=== PATIENT | female | born 1955 | race Caucasian/White ===

== ENCOUNTER 2017-03-11 15:01 | Emergency (ER) | payer MEDICARE ==
[~2017-03-11 15:01] MED LIST: ADVIL PO; AMOXIL500 MG PO; BIAXIN5 PO; CHEMO THERAPY IV; CHEMOTHERAPY IV; COMP10B PO; FEMARA PO; FLUCON1 PO; IBRANCE125 PO; METHOC500B PO; MSCONT15 PO; NOLV10 PO; NORCO1 TAB PO; PRILO PO; PROVHFA INH; SEROQUEL300 MG PO; SUPER B-100 PO; TAMOXIFEN20 M1 PO; TESSALON200 MG PO; VITAMIN D400 UNI1 PO; VITC500 PO; ZESTRIL20 MG PO; ZOCOR20 PO; ZOFRAN4 PO; ZOFRAN8 PO; [UNRECOGNIZED DRUG - OTHER]; [UNRECOGNIZED DRUG - OTHER] IM; [UNRECOGNIZED DRUG - REMARK] PO
[2017-03-11 15:59] LABS: BASOPHILS 0.9 %; BASOPHILS ABSOLUTE 0.02 10/3/uL (0.0-0.16); EOSINOPHILS 0.9 %; EOSINOPHILS ABSOLUTE 0.02 10/3/uL (0.0-0.53); HEMATOCRIT 26.9 % (36.0-48.0); HEMOGLOBIN 9.4 g/dL (12.0-16.0); IMMATURE GRANULOCYTES 0.5 %; IMMATURE GRANULOCYTES ABSOLUTE 0.01 10/3/uL (0.0-0.11); MEAN CORPUS HGB CONC 34.9 g/dL (32.0-36.0); MEAN CORPUSCULAR HEMOGLOB 36.4 pg (26.0-34.0); MEAN CORPUSCULAR VOLUME 104.3 fL (80-100); MEAN PLATELET VOLUME 10.7 fL (9.2-13.0); MONOCYTES 8.9 %; MONOCYTES ABSOLUTE 0.19 10/3/uL (0.21-1.20); NEUTROPHILS 74.8 %; PLATELET COUNT 101 10/3/uL (150-400); RBC DISTRIBUTION WIDTH 15.6 % (12.0-16.0); RED CELL COUNT 2.58 10/6/uL (4.0-5.6); WHITE BLOOD CELLS 2.1 10/3/uL (4.5-10.5)
[2017-03-11 16:02] LABS: MANUAL DIFF NO %
[2017-03-11 16:11] LABS: CALCIUM, SERUM 8.9 MG/DL (8.5-10.4); CHLORIDE, SERUM 106 MMOL/L (96-112); CO2 (CARBON DIOXIDE) 29 MMOL/L (24-34); CREATININE 0.81 MG/DL (0.55-1.02); GFR AFRICAN AMERICAN 90 ML/MIN (>=60); GFR NON AFRICAN AMERICAN 77 ML/MIN (>=60); POTASSIUM, SERUM 3.3 MMOL/L (3.5-5.3); SODIUM, SERUM 140 MMOL/L (135-148)
[2017-03-11 16:12] LABS: BUN (BLOOD UREA NITROGEN) 10 MG/DL (6-23); GLUCOSE, SERUM 176 MG/DL (60-99)
[2017-03-11 16:51] LABS: ASCORBIC ACID (UR NOT ORDER) NEG (NEG); BILIRUBIN, URINE NEGATIVE (NEG); ER URINALYSIS TAT 0 Hrs 14 Mins; KETONE, URINE NEGATIVE (NEG); LEUKOCYTE ESTERASE(NOT OR MOD (NEG); NITRITE (URINE) NEG (NEG); WBC (NOT ORDERED) (RFLEX) 33 (0-5)
== END 2017-03-11 17:59 | disposition home or self-care (01) ==
LOC: ER 15:01
PROVIDERS: Physician Assistant Medical
DX: E87.6 Hypokalemia (principal); D64.9 Anemia, unspecified; E11.9 Type 2 diabetes mellitus without complications; Z85.3 Personal history of malignant neoplasm of breast; Z88.5 Allergy status to narcotic agent; Z79.899 Other long term (current) drug therapy
CPT/HCPCS: 80048; 81001; 82962; 85025; 87077; 87086; 87186; 99285; A9270-GY